=== PATIENT | female | born 1950 | race Caucasian/White ===

== ENCOUNTER 2021-12-25 11:27 | Inpatient (IN) ==
--- NOTE | 2021-12-01 08:51 | PAT Medication Instructions ---
Medication Instructions Date of Service December 01, 2021 Home Medications Glucosamine-Chondr (boswellia) 500 mg PO QAM biotin 2,500 mcg capsule 2,500 mcg PO QAM cholecalciferol (vitamin D3) 125 mcg (5,000 unit) tablet (Vitamin D3) 125 mcg PO QAM cranberry concentrate-ascorbic acid 140 mg-100 mg capsule (Cranberry Plus Vitamin C) 1 cap PO BID fenugreek seed 610 mg capsule 610 mg PO QAM levothyroxine 112 mcg capsule 112 mcg PO QAM milk thistle 500 mg capsule 1,000 mg PO QAM turmeric root extract 500 mg tablet 1,500 mg PO BID vit C,E,zinc,copper-kjhlt6h 250 mg-lutein 5 mg-zeaxanthin 1 mg capsule 1 cap PO QAM vitamin B12 1,000 mcg-folic acid 400 mcg sublingual tablet 1 tab SUBLINGUAL QAM STOP taking 2 weeks before surgery (or as soon as possible if surgery is within 2 weeks) Glucosamine-Chondr (boswellia) 500 mg PO QAM cranberry concentrate-ascorbic acid 140 mg-100 mg capsule (Cranberry Plus Vitamin C) 1 cap PO BID fenugreek seed 610 mg capsule 610 mg PO QAM milk thistle 500 mg capsule 1,000 mg PO QAM turmeric root extract 500 mg tablet 1,500 mg PO BID vit C,E,zinc,copper-umumk9b 250 mg-lutein 5 mg-zeaxanthin 1 mg capsule 1 cap PO QAM DO NOT take the morning of surgery biotin 2,500 mcg capsule 2,500 mcg PO QAM cholecalciferol (vitamin D3) 125 mcg (5,000 unit) tablet (Vitamin D3) 125 mcg PO QAM vitamin B12 1,000 mcg-folic acid 400 mcg sublingual tablet 1 tab SUBLINGUAL QAM Take morning of surgery With a small sip of water, OTHERWISE NOTHING TO EAT OR DRINK AFTER MIDNIGHT: levothyroxine 112 mcg capsule 112 mcg PO QAM Other Notes If you have any questions please call us at [phone] or [phone] or [phone] or [phone]
--- NOTE | 2021-12-06 12:51 | Anesthesiology Consultation ---
Date of Service December 06, 2021 Assessment & Plan (1) Encounter for pre-operative examination: Chart Review Chart Review: Acceptable Risk for Surgery (pending preop Covid testing results ) and Patient seen in Pre Admission Testing Per PAT appt on 12/06/21, patient denies any recent travel or large group activities. No known Covid positive exposures or Covid related symptoms. No known Covid infection in the past 90 days. Pt is vaccinated for Covid. Preop Covid testing needs done 2-4 days prior to surgery (pt aware) = will await results. Educated on importance of self quarantining, social distancing and wearing mask in public for the patient one week prior to surgery and after Covid testing done Teaching & Discussion Pre-Anesthesia Teaching/Discussion Notes: Instructed NPO after midnight before surgery,except medications with 15 cc of water. Medication instructions provided according to the [facility] guidelines. History Surgery Operation Date: 12/25/21 09:45 Proposed Procedures p Right Reversed Total Shoulder Arthroplasty - Gino Bernal MD Height/Weight Height: 5 ft 8 in Weight: 76.4 kg Allergies Allergy/AdvReac Type Severity Reaction Status Date / Time No Known Allergies Allergy Verified 11/30/21 14:00 Medications Home Medications Medication Instructions Recorded Confirmed Last Taken Glucosamine-Chondr (boswellia) 500 mg PO QAM 11/30/21 11/30/21 Unknown biotin 2,500 mcg capsule 2,500 mcg PO QAM 11/30/21 11/30/21 Unknown cholecalciferol (vitamin D3) 125 125 mcg PO QAM 11/30/21 11/30/21 Unknown mcg (5,000 unit) tablet (Vitamin D3) cranberry concentrate-ascorbic 1 cap PO BID 11/30/21 11/30/21 Unknown acid 140 mg-100 mg capsule (Cranberry Plus Vitamin C) fenugreek seed 610 mg capsule 610 mg PO QAM 11/30/21 11/30/21 Unknown levothyroxine 112 mcg capsule 112 mcg PO QAM 11/30/21 11/30/21 Unknown milk thistle 500 mg capsule 1,000 mg PO QAM 11/30/21 11/30/21 Unknown turmeric root extract 500 mg tablet 1,500 mg PO BID 11/30/21 11/30/21 Unknown vit C,E,zinc,copper-eaedn7j 250 1 cap PO QAM 11/30/21 11/30/21 Unknown mg-lutein 5 mg-zeaxanthin 1 mg capsule vitamin B12 1,000 mcg-folic acid 1 tab SUBLINGUAL QAM 11/30/21 11/30/21 Unknown 400 mcg sublingual tablet Past Medical History Medical History Hypothyroidism Mitral valve prolapse Dx'ed 1980s - very mild per patient- no murmur or need for abxs Exercise / Class Metabolic Activity II 4-5 Yardwork/Stairs/Walk up hill (one flight of stairs - no chest pain or SOB ) Past Family History Family History Grandmother (Paternal) Diabetes Father Stroke Mother Dementia Past Surgical History Surgical History History of arthroscopy of right shoulder Hx of wisdom tooth extraction Past Anesthesia History No Hx of Anesthesia Complications and No Family Hx of Anesthesia Complications History of PONV No Hx of PONV and No Hx of Motion Sickness Social History Smoking Status: Former smoker tobacco type: cigarettes Smoking cigarettes per day: 1pk/week Do You Dip or Chew Tobacco: No Smoking End Date: 2019 Hx Alcohol Use: No Hx Substance Use: No substance use type: does not use Review of Systems Minimal reflux occ while eating Mild rare cough- secondary to allergies patient feels Patient denies chest pain, shortness of breath, dyspnea on exertion, wheezing, palpitations. No hx of seizures, stroke, [place], apnea/snoring. No hx of blood clots or blood transfusions Physical Exam Vital Signs VITALS BP 126/69 P 77 TEMP 98.0 SP02 96% RESP 16 Constitutional no acute distress ENMT Mouth: no TMJ clicking Thyromental Distance: < 3.5 Finger Breadths (3.0) Mallampati Class: II Broken upper left molar Neck neck extension not limited Respiratory normal respiratory effort; no respiratory distress Auscultation: lungs clear to auscultation bilaterally; no wheezes Cardiovascular Rate/Rhythm: regular rate and regular rhythm Heart Sounds: no murmur Vessels: no carotid bruit Musculoskeletal Spine: no pain with cervical ROM Extremities: extremities normal to inspection Psychiatric Orientation: alert Lab Results Anesthesia Preop Results Results Anesthesia Widget: WBC 5.99 K/uL (4.8-10.8) 12/06/21 Hgb 12.9 g/dL (12.0-16.0) 12/06/21 Hct 39.8 % (37-47) 12/06/21 Plt 261 K/uL (130-400) 12/06/21 Na 139 mmol/L (136-145) 12/06/21 K 4.3 mmol/L (3.5-5.1) 12/06/21 Cl 106 mmol/L (98-107) 12/06/21 CO2 26 mmol/L (21-32) 12/06/21 BUN 23 mg/dl (6-23) 12/06/21 Creat 0.74 mg/dl (0.6-1.2) 12/06/21 Glucose Level 94 mg/dl (70-99(Fasting)) 12/06/21 PT 10.2 Seconds (9.0-12.0) 12/06/21 PTT 26.0 Seconds (21.0-31.0) 12/06/21 INR 1.0 (0.9-1.1) 12/06/21 HA1c 5.1 % (4.5-5.6) 12/06/21 Urine Color Dark Yellow 12/06/21 Urine Appearance Clear (Clear) 12/06/21 Urine pH 5.0 (4.5-7.5) 12/06/21 Urine Specific [place] 1.028 (1.000-1.030) 12/06/21 Urine Protein Negative (Negative) 12/06/21 Urine Glucose (UA) Negative (Negative) 12/06/21 Urine Ketones Trace (Negative) H 12/06/21 Urine Blood Negative (Negative) 12/06/21 Urine Nitrite Negative (Negative) 12/06/21 Urine Bilirubin Negative (Negative) 12/06/21 Urine Urobilinogen Negative (Negative) 12/06/21 Urine Leukocyte Esterase Negative (Negative) 12/06/21 Blood Type O Positive 12/06/21 Antibody Screen NEGATIVE 12/06/21 Testing Electrocardiogram Date: 12/06/21 Findings: + NSR @ (64bpm ) Normal EKG per cardio. Chest X-Ray Date: 12/06/21 Findings: + NAD The cardiomediastinal silhouette is unremarkable. Emphysematous change is suspected. Interstitial thickening is likely chronic. No airspace consolidation or pleural effusion is identified. There is no pneumothorax.
--- NOTE | 2021-12-24 19:19 | History & Physical Report ---
Date of Service December 24, 2021 Assessment & Plan (1) Full thickness rotator cuff tear: Plan: Treatment options discussed with patient. She has failed conservative measures. She would like to proceed with surgical intervention. Risks, benefits and alternatives to surgery including but not limited to infection, DVT, pain, stiffness, need for revision surgery, damage to blood vessels, damage to nerves, PE, , were discussed with the patient and they wish to proceed. Plan on right reverse total shoulder arthroplasty scheduled for [facility] with Dr. Bernal on 12/25/21. All questions answered. She will follow up post op. Rotator cuff tear trauma status: unspecified whether traumatic Laterality: right Qualified Code(s): M75.121 - Complete rotator cuff tear or rupture of right shoulder, not specified as traumatic History of Present Illness Chief Complaint: Right shoulder pain Primary Care Provider: HANK PCP 71 year old female with PMHx significant for hypothyroidism and MVP who presents with ongoing right shoulder pain. Patient underwent rotator cuff repair in June of this year and was found to have persistent pain and weakness. MRI confirmed failure of repair with retraction. It was discussed with patient that this would not be amenable to repair and would require arthroplasty. She has failed conservative measures including therapy. Patient has pain with daily activities. Patient denies headaches, sweats, fevers, chills, double vision, blurred vision, cough, sore throat, dysphagia, chest pain, sob, wheezing, n/v/d/c, numbness, tingling, fatigue, urinary symptoms, mood disorders. ROS positive for right shoulder pain and stiffness. Allergies Allergy/AdvReac Type Severity Reaction Status Date / Time No Known Allergies Allergy Verified 11/30/21 14:00 Home Medications Medication Instructions Recorded Confirmed Type Glucosamine-Chondr (boswellia) 500 mg PO QAM 11/30/21 11/30/21 History biotin 2,500 mcg capsule 2,500 mcg PO QAM 11/30/21 11/30/21 History cholecalciferol (vitamin D3) 125 125 mcg PO QAM 11/30/21 11/30/21 History mcg (5,000 unit) tablet (Vitamin D3) cranberry concentrate-ascorbic 1 cap PO BID 11/30/21 11/30/21 History acid 140 mg-100 mg capsule (Cranberry Plus Vitamin C) fenugreek seed 610 mg capsule 610 mg PO QAM 11/30/21 11/30/21 History levothyroxine 112 mcg capsule 112 mcg PO QAM 11/30/21 11/30/21 History milk thistle 500 mg capsule 1,000 mg PO QAM 11/30/21 11/30/21 History turmeric root extract 500 mg tablet 1,500 mg PO BID 11/30/21 11/30/21 History vit C,E,zinc,copper-kasas2t 250 1 cap PO QAM 11/30/21 11/30/21 History mg-lutein 5 mg-zeaxanthin 1 mg capsule vitamin B12 1,000 mcg-folic acid 1 tab sublingual QAM 11/30/21 11/30/21 History 400 mcg sublingual tablet Past Med/Surg History Medical History Hypothyroidism Mitral valve prolapse Dx'ed 1980s - very mild per patient- no murmur or need for abxs Surgical History History of arthroscopy of right shoulder Hx of wisdom tooth extraction Family History Grandmother (Paternal) Diabetes Father Stroke Mother Dementia Social History Smoking Status: Former smoker Cigarettes Per Day: 1pk/week; Second Hand Exposure: No; Hx Alcohol Use: No Hx Substance Use: No Preferred Language: Wallisian Communication Ability: Effective 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 Beliefs That Will Affect Care: None Current Living Situation: Family Current Living Situation Comment: Son and grand daughter Feels Safe at Home: Yes Assistive Devices: Glasses Review of Systems All systems reviewed & are unremarkable except as noted in HPI & below Physical Exam Constitutional: well developed and well nourished; no acute distress Eyes: PERRL, conjunctivae normal, anicteric sclerae ENMT: external ear and nose normal, oropharynx normal Neck: trachea midline, no thyromegaly Respiratory: normal respiratory effort, lungs clear to auscultation Cardiovascular: RRR, no murmur, no edema Musculoskeletal: Right shoulder: Tenderness anterolateral acromion. Crepitation with ROM. Painful ROM. FF to 90 degrees, abduction to 90 degrees actively. Pain and weakness with resistive strength testing. Skin: no rashes, warm and dry Neurologic: patellar DTR's 2+ bilat, sensation intact Psychiatric: A+Ox3, euthymic affect Results & Data ([place]) Diagnostic Findings Right shoulder MRI demonstrates recurrent full thickness tear of supraspinatus extending into infraspinatus with retraction
[~2021-12-25 11:27] MED LIST: ACETAMINOPHEN 500 MG TAB PO SCH; BUPIVACAINE 0.25% 30 ML VIAL ONE; CeleBREX 200 MG CAP PO SCH; DEXAMETHASONE SOD INJ 4 MG/ML VIAL ONE; FAMOTIDINE 20 MG TAB PO SCH; GABAPENTIN 300 MG CAP PO SCH; LIDOCAINE 2% 2 ML VIAL/AMP(20MG/ML) INFIL ONE; LR 15ML/HR IV SCH; METOCLOPRAMIDE HCL 10 MG TABLET PO SCH; MIDAZOLAM HCL 1 MG/ML 2ML VIAL ONE; ONDANSETRON INJ 2 MG/ML 2 ML VIAL ONE; PROPOFOL IV EMULSION 10 MG/ML 20 ML VIAL IV ONE; ROCURONIUM BROMIDE 10 MG/ML 5 ML VIAL IV ONE; TRANEXAMIC ACID / 0.7% NACL 1,000 MG/100 ML BAG IV SCH; TRANEXAMIC ACID 1,000 MG **IV Intra-op IV SCH; ceFAZolin 1000MG 1,000 MG/7.5 ML SYR IV SCH; dexAMETHasone 4 MG TAB PO SCH; fentaNYL citrate 100 MCG/2 ML VIAL ONE
--- NOTE | 2021-12-25 12:04 | History & Physical Bridge Note ---
Date of Service December 25, 2021 History & Physical Bridge Note I have examined the patient, reviewed the History & Physical and in the interval since the performance of the History & Physical I have noted the following changes of clinical significance: no changes noted
[2021-12-25] MEDS ORDERED: fentaNYL citrate 100 MCG/2 ML VIAL IV PRN (12:36)
[2021-12-25] MEDS ORDERED: ePHEDrine sulfate 50 MG/ML AMP IV PRN (12:36)
[2021-12-25] MEDS ORDERED: ONDANSETRON INJ 2 MG/ML 2 ML VIAL IV PRN ×2 (12:36→17:48)
[2021-12-25] MEDS ORDERED: PROMETHAZINE HCL 6.25 MG in SODIUM CHLORIDE 0.9% 50 ML IV PRN (12:36)
[2021-12-25] MEDS ORDERED: ATROPINE SULFATE 0.1 MG/ML 10ML SYR IV PRN (12:36)
[2021-12-25] MEDS ORDERED: DEXAMETHASONE SOD INJ 4 MG/ML VIAL ONE (14:06)
--- NOTE | 2021-12-25 16:28 | Operative Report ---
Post Operative Report Pre & Post Diagnosis Operation Date: 12/25/21 14:05 Pre-Op Diagnosis: Failure rotator cuff repair right shoulder Post-Op Diagnosis: Failure rotator cuff repair right shoulder, mild glenohumeral joint osteoarthritis, prior biceps rupture or tenotomy with lax biceps tendon I identified the patient and participated in the time-out.: Yes Procedure Operation Date: 12/25/21 14:05 Actual Procedures p Right Reversed Total Shoulder Arthroplasty--Uncemented(Right), biceps tenodesis, removal deep hardware(suture anchors and suture material)- Gino Bernal MD Surgeon Gino Bernal MD Business Consult Adriel MANCIA Estimated Blood Loss 40 Findings Consistent with Post-Op Diagnosis Specimens Humeral head cut Drains 2 Hemovac Anesthesia Type General Regional Complications none Disposition Disposition: Recovery Room Indications 71-year-old female who had a rotator cuff repair due to a work-related traumatic injury. Patient had augmentation of the repair with a Regeneten biological implant. Despite having a surgical repair the patient went on to have a failed rotator cuff repair with a large tear and chronic weakness and disability with overhead use. Patient's also had some chronic pain as well. MRI demonstrates failure rotator cuff repair with large superior defect in the rotator cuff. Description of Procedure The patient was taken to the operating room and anesthetized under regional block and general anesthetic. The patient was positioned on the operating table in a 30 beach chair position with a towel roll under the medial border of the right scapula. The arm was draped free to be able to manipulate the shoulder as needed. The right upper extremity was prepped and draped in usual sterile fashion. Exam demonstrated 100 degrees forward flexion and 30 degrees external rotation and 70 degrees of abduction. Patient had benign healed arthroscopic scars. An anterior deltopectoral approach was performed. A longitudinal incision was made in the deltopectoral interval. The skin was incised sharply. Subcutaneous flaps were elevated off the fascia. The cephalic vein was dissected out and retracted lateral with the deltoid. The clavipectoral fascia was divided at the lateral margin of the conjoined tendon and extended up to the CA ligament. The following findings were noted: There was scarred bursal tissue over the rotator cuff with an intact subscapularis tendon and torn supraspinatus and infraspinatus tendons with retraction with intact teres minor. There was still some intact tissue in the rotator interval area above the subscapularis. Biceps tendon was lax in the bicipital groove, there was a fluid collection in the bicipital groove area with tenosynovitis around the biceps tendon. There was no proximal biceps tendon in the glenohumeral joint. The upper centimeter of the pectoralis was released for inferior exposure. A self-retaining retractor was placed. The biceps tendon findings demonstrated laxity of the biceps tendon with intact biceps tendon at the area of the pectoralis tendon.. the biceps tendon was tensioned some proximally and then sutured to the pectoralis tendon with interrupted #2 FiberWire to noticing it to the pectoralis tendon. The proximal biceps was resected. The subscapularis muscle fibers were split longitudinally at the level of the circumflex vessels. The circumflex vessels were identified and tied off with silk ties and divided laterally. A Kitner elevator was used to free up the inferior fibers of the subscapularis off of the capsule. The axillary nerve was identified with a tug test and protected with a blunt Cipriano retractor between the nerve and the capsule. The rotator oval tissue was resected and released off the greater tuberosity. The thickened subacromial bursa was all resected and subdeltoid adhesions were released. The subscapularis tendon was then taken down off of the lesser tuberosity subperiosteally, a Vicryl traction suture was placed and a subperiosteal dissection was performed along the neck of the humerus as the arm was gradually externally rotated exposing the humeral head. The humeral head f indings demonstrated central region of grade 3 close to grade IV chondromalacia about 12 mm in diameter and some minor wear of the articular surface and no osteophytes.. retractors were readjusted and A Choudhury elevator was used to assist in releasing the capsule of the neck of the humerus. The capsule was divided with Castillo scissors down to the glenoid released off the anterior glenoid and the rotator interval was released to meet the capsular release and a 360 release of the subscapularis was accomplished. A Fukuda retractor was placed into the joint retracting the humeral head posterior. Glenoid findings demonstrated intact articular cartilage. The labrum was resected. an anterior-inferior and posterior inferior capsular release were performed with electrocautery and a Choudhury elevator on bone with the axillary nerve protected inferiorly by the retractor. Attention was then taken to the humeral preparation. The cutting guide was placed into the humeral head. It was positioned at 20 of retroversion. Oscillating saw was used to resect the humeral head giving the cut above the level of the posterior rotator cuff insertion site. Several suture anchors were removed which were peek anchors with suture tape and sutures removed with a scalpel as well. This was required to be able to instrument the canal for the implant. The humerus was then prepared for the stem. I used the ascend flex stem from [employer]. The sizing broaches were used followed by trial broaches up to a size 5B long which had the appropriate fit and fill. The appropriate sized cut protector was placed. The humerus was then retracted posterior to the glenoid. The glenoid was sized for a 25 mm baseplate. The guide for the baseplate was positioned in a 10 inferior tilt and the central drill hole was made. The reamer for the 25 baseplate was used. It was noted the patient had some level of osteopenia or osteoporosis as the bone was quite soft. The central drill was widened for the peg. The Tornier 25 mm hydroxyapatite-coated baseplate was impacted into position. The base plate was transfixed with superior and inferior locking screws and anterior and posterior compression screws with stable fixation. Posterior screw had fair fixation the locking screws had good fixation and the anterior screw had good fixation despite the soft bone. The fan reamer was used for the 36 millimeter glenoid sphere. After irrigation the 36 mm standard glenoid sphere was impacted onto the baseplate and the security screw was tightened. Attention was taken back to the humerus. The cut protector was removed and the +0 high offset humeral tray trial was assembled to the trial stem rotated appropriately to get bony coverage and then screwed in position. A trial reduction was performed. A +6, 36 mm reversed trial insert demonstrated good stability and no shuck. The trials were removed. 3 drill holes are made into the harder bone in the bicipital groove area and 3 #5 FiberWire sutures were placed transosseously. The canal was irrigated with antibiotic solution with bacitracin. The final component was assembled. The final component was Tornier ascend flex 5B long stem assembled to the plus 0 high offset tray with a +6, 36 reversed polyethylene insert. This was then impacted into the humerus with a tight press-fit. It was reduced to the glenoid sphere. Stability was verified. We verified there was no shuck with traction and good stability. The subscapularis was repaired with the #5 FiberWire sutures using Gerald-Rinku suture technique. Lateral row soft tissue repair was performed with #2 FiberWire [id number] sutures. The pectoralis was repaired with #2 FiberWire [id number] sutures reinforcing the biceps tendon tenodesis. The arm was taken through a range of motion which demonstrated 130 degrees forward flexion, 100 degrees abduction and 60 degrees external rotation without any tension on the repair. The implant was stable through the range of motion tested. The wound was copiously irrigated. 2 Hemovac drains were placed. The deltopectoral interval was closed with [id number] #1 Vicryl sutures. The subcutaneous tissues were closed with 2- 0 Vicryl sutures. The skin was closed with olga. Sterile dressings were applied and a shoulder immobilizer. Adriel Dai my physician assistant program director acted as communication assistant throughout the procedure .He performed functions including arm positioning, prepping and draping, soft tissue retraction, instrument management, suture management and performed the subcutaneous and skin closure and will participate in the postoperative care of the patient. I attest to the content of the Intraoperative Record and any orders documented therein. Any exceptions are noted below.
--- NOTE | 2021-12-25 16:56 | XRay Report ---
RIGHT SHOULDER 2 VIEWS CLINICAL HISTORY: Postoperative examination. FINDINGS: 2 portable views of the right shoulder are obtained. No prior studies are available for [facility] at the time of dictation. The skeletal structures are osteopenic. A right shoulder arthroplas ty is in near-anatomic alignment. No acute fracture is seen. Skin clips, a surgical drain, soft tissu e gas, and edema overlying the right shoulder are expected postoperative findings. Mild productive de generative change is noted in the acromioclavicular joint. The right lung parenchyma is clear as imag ed. IMPRESSION: Expected postoperative findings status post right shoulder arthroplasty. No acute fractur e is identified. Electronically signed by: Javier Grimes M.D. 12/25/2021 4:55 PM
--- NOTE | 2021-12-25 17:08 | Anesthesiology Progress Note ---
Date of Service December 25, 2021 Anesthesia Post Procedure Vital Signs Vital Signs: Temp Pulse Resp BP Pulse Ox O2 Del Method 12/25/21 16:55 55 L 13 99/53 L 94 Room Air 12/25/21 16:45 61 16 102/63 93 Room Air 12/25/21 16:35 36.1 C L 62 16 125/72 98 Room Air 12/25/21 12:25 37.0 C 71 20 140/84 98 Room Air Transfer of Care Handoff Completed per policy Notes Mental Status: alert / awake / arousable Patient Amnestic to Procedure: Yes Nausea / Vomiting: adequately controlled Pain: adequately controlled Airway Patency, RR, SpO2: stable & adequate BP & HR: stable & adequate Hydration State: stable & adequate Anesthetic Complications: no major complications apparent
[2021-12-25] MEDS ORDERED: HYDROmorphone INJ 0.5 MG/0.5 ML SYR IV PRN (17:48)
[2021-12-25] MEDS ORDERED: NALOXONE HCL 0.4 MG/1 ML VIAL/CARP IV PRN (17:48)
[2021-12-25] MEDS ORDERED: oxyCODONE HCL IR 5 MG TAB (IMMEDIATE RELEASE) PO PRN (17:48)
[2021-12-25] MEDS ORDERED: bisacodyL 10 MG SUPP PR PRN (17:48)
[2021-12-25] MEDS ORDERED: METOCLOPRAMIDE HCL INJ 5 MG/ML 2 ML VIAL IV PRN (17:48)
[2021-12-25] MEDS ORDERED: MAGNESIUM HYDROXIDE SUSP 30 ML UDC PO PRN (17:48)
[2021-12-25] MEDS: SODIUM CHLORIDE 0.9% 1000ML 1,000 ML IV SCH (18:07)
[2021-12-25] MEDS: DOCUSATE SODIUM 100 MG CAP PO SCH (20:55)
[2021-12-25] MEDS ORDERED: SENNA 8.6 MG TAB PO SCH (21:00)
[2021-12-25] MEDS: ACETAMINOPHEN 500 MG TAB PO SCH (21:45)
[2021-12-25] MEDS: ceFAZolin 1000MG 1,000 MG/7.5 ML SYR IV SCH (21:46)
[2021-12-26] MEDS: SODIUM CHLORIDE 0.9% 1000ML 1,000 ML IV SCH (04:12)
[2021-12-26] MEDS: ACETAMINOPHEN 500 MG TAB PO SCH (05:48)
[2021-12-26] MEDS: ceFAZolin 1000MG 1,000 MG/7.5 ML SYR IV SCH (05:49)
[2021-12-26] MEDS ORDERED: LEVOTHYROXINE SODIUM 112 MCG TABLET PO SCH (06:30)
--- NOTE | 2021-12-26 08:02 | Orthopedic Progress Note ---
Date of Service December 26, 2021 Assessment & Plan (1) Full thickness rotator cuff tear: Plan: Postop day #1 right reverse total shoulder arthroplasty -PT/OT: No formal therapy at this time. May do elbow/wrist/hand motion, pendulums, shrugs -Pain management as written -A.m. labs are pending -DVT prophylaxis: SCDs -Discharge planning: Plan on discharge home today. Admission and Anticipated Discharge Date Admission Date: December 25, 2021 Subjective Patient is postop day 1 right reverse total shoulder. She is doing well this morning. No pain in shoulder at this time. Residual from nerve block. No other complaints. Denies chest pain, shortness of breath, dizziness, n/v/d. Review of Systems Review of Systems: All systems reviewed & are unremarkable except as noted in Subjective Physical Exam Physical Exam: Right shoulder: Sling in place. Dressing is clean, dry, intact. Decreased movement of fingers as well as decreased sensation residual from nerve block. This is starting to improve. Results & Data ([facility]) Vital Signs (Past 12 Hours) Vital Signs Temp Pulse Resp BP Pulse Ox O2 Del Method 12/26/21 07:18 36.4 C L 64 16 135/76 96 Room Air 12/26/21 02:49 36.2 C L 72 18 143/75 H 93 Room Air 12/25/21 23:00 36.5 C 76 16 131/72 96 Room Air 12/25/21 20:57 36.3 C L 81 16 147/76 H 95 Room Air (1) Full thickness rotator cuff tear Rotator cuff tear trauma status: unspecified whether traumatic Laterality: right Qualified Code(s): M75.121 - Complete rotator cuff tear or rupture of right shoulder, not specified as traumatic
[2021-12-26] MEDS: DOCUSATE SODIUM 100 MG CAP PO SCH (08:06)
[2021-12-26 08:55] LABS: Basophils # (auto) 0.02 K/uL (0-0.2); Basophils % (auto) 0.2 %; Hematocrit (blood only) 33.7 % (34.1-44.9); Hemoglobin 11.1 g/dl (12.0-16.0); Immature Granulocytes # (auto) 0.03 K/uL (0.00-0.02); Immature Granulocytes % (auto) 0.3 %; Lymphocytes # (auto) 1.16 K/uL (1.2-3.4); Lymphocytes % (auto) 10.5 %; Mean Corpuscular Hemoglobin 31.1 pg (25.0-34.0); Mean Corpuscular Hgb Conc 32.9 g/dL (32.0-36.0); Mean Corpuscular Volume 94.4 fL (80.0-100.0); Mean Platelet Volume 10.4 fL (9.4-12.3); Monocytes # (auto) 0.96 K/uL (0.24-0.82); Monocytes % (auto) 8.7 %; Neutrophils % (auto) 80.3 %; Platelet Count 203 K/uL (130-400); RDW Coefficient of Variation 12.6 % (11.5-14.5); RDW Standard Deviation 44.1 fL (36.4-46.3); Red Blood Count 3.57 M/uL (3.93-5.22); White Blood Count 11.07 K/ul (4.8-10.8)
[2021-12-26] MEDS ORDERED: CYANOCOBALAMIN (B-12) 500 MCG TABLET PO SCH (09:00)
[2021-12-26] MEDS ORDERED: BIOTIN 2500 MCG PO SCH (09:00)
[2021-12-26] MEDS ORDERED: NON-FORMULARY MEDICATION (Vitamin B12-Folic Acid 1,000-400 mcg Tablet, Sublingual) SL SCH (09:00)
[2021-12-26] MEDS ORDERED: FOLIC ACID 400 MCG TAB PO SCH (09:00)
[2021-12-26] MEDS ORDERED: CHOLECALCIFEROL 5,000 UNITS 125 MCG TAB PO SCH (09:00)
[2021-12-26] MEDS ORDERED: MULTIVITAMIN TAB PO SCH (09:00)
[2021-12-26 09:19] LABS: BUN Creatinine Ratio 27.1 (10-20); Calcium 8.9 mg/dl (8.5-10.1); Creatinine Clr Calc Pharmacy 72.2 ml/min; Est GFR (African American) 99.6 ml/min; Potassium 4.1 mmol/L (3.5-5.1)
--- NOTE | 2021-12-26 15:17 | Communication Note ---
Date of Service: December 26, 2021 Patient was discharged within 24 hours of admission before being seen.
--- NOTE | 2021-12-28 08:48 | Discharge Summary ---
Date of Service December 28, 2021 Admission HPI Per Admitting Provider 71 year old female with PMHx significant for hypothyroidism and MVP who presents with ongoing right shoulder pain. Patient underwent rotator cuff repair in June of this year and was found to have persistent pain and weakness. MRI confirmed failure of repair with retraction. It was discussed with patient that this would not be amenable to repair and would require arthroplasty. She has failed conservative measures including therapy. Patient has pain with daily activities. Patient denies headaches, sweats, fevers, chills, double vision, blurred vision, cough, sore throat, dysphagia, chest pain, sob, wheezing, n/ v/d/c, numbness, tingling, fatigue, urinary symptoms, mood disorders. ROS positive for right shoulder pain and stiffness. Admission Exam Per Admitting Provider Constitutional: well developed and well nourished; no acute distress Eyes: PERRL, conjunctivae normal, anicteric sclerae ENMT: external ear and nose normal, oropharynx normal Neck: trachea midline, no thyromegaly Respiratory: normal respiratory effort, lungs clear to auscultation Cardiovascular: RRR, no murmur, no edema Musculoskeletal: Right shoulder: Tenderness anterolateral acromion. Crepitation with ROM. Painful ROM. FF to 90 degrees, abduction to 90 degrees actively. Pain and weakness with resistive strength testing. Skin: no rashes, warm and dry Neurologic: patellar DTR's 2+ bilat, sensation intact Psychiatric: A+Ox3, euthymic affect Principal Diagnosis right shoulder rotator cuff arthropathy Discharge Exam Right shoulder: Sling in place. Dressing is clean, dry, intact. Decreased movement of fingers as well as decreased sensation residual from nerve block. This is starting to improve. Constitutional well developed and well nourished; no acute distress Discharge Data Allergies Allergy/AdvReac Type Severity Reaction Status Date / Time No Known Allergies Allergy Verified 12/25/21 12:09 Consultations 12/20/21 15:07 Consult Hospitalist Routine Procedures Performed Operation Date: 12/25/21 14:05 Actual Procedures p Right Reversed Total Shoulder Arthroplasty--Uncemented(Right) - Gino Bernal MD Ordered Studies 12/25/21 05:00 US - OR guided needle placemen Routine Hospital Course (1) Full thickness rotator cuff tear: Postop day #1 right reverse total shoulder arthroplasty -PT/OT: No formal therapy at this time. May do elbow/wrist/hand motion, pendulums, shrugs -Pain management as written -A.m. labs are pending -DVT prophylaxis: SCDs -Discharge planning: Plan on discharge home today. Lab Results 12/25/21 12/26/21 12/26/21 Range/Units Unknown 07:53 07:53 WBC 11.07 H (4.8-10.8) K/ul RBC 3.57 L (3.93-5.22) M/uL Hgb 11.1 L (12.0-16.0) g/dl Hct 33.7 L (34.1-44.9) % MCV 94.4 (80.0-100.0) fL MCH 31.1 (25.0-34.0) pg MCHC 32.9 (32.0-36.0) g/dL RDW Std Deviation 44.1 (36.4-46.3) fL RDW Coeff of Rogelio 12.6 (11.5-14.5) % Plt Count 203 (130-400) K/uL MPV 10.4 (9.4-12.3) fL Immature Gran % (Auto) 0.3 % Neut % (Auto) 80.3 % Lymph % (Auto) 10.5 % [place] % (Auto) 8.7 % Eos % (Auto) 0.0 % Baso % (Auto) 0.2 % Neut # (Auto) 8.90 H (1.4-6.5) K/uL Lymph # (Auto) 1.16 L (1.2-3.4) K/uL [place] # (Auto) 0.96 H (0.24-0.82) K/uL Eos # (Auto) 0.00 (0-0.50) K/uL Baso # (Auto) 0.02 (0-0.2) K/uL Immature Gran # (Auto) 0.03 H (0.00-0.02) K/uL Sodium 138 (136-145) mmol/L Potassium 4.1 (3.5-5.1) mmol/L Chloride 109 H (98-107) mmol/L Carbon Dioxide 23 (21-32) mmol/L Anion Gap 6 (3-11) BUN 19 (6-23) mg/dl Creatinine 0.70 (0.6-1.2) mg/dl Est Cr Clr Drug Dosing 72.2 ml/min Est GFR ( Amer) 99.6 ml/min Est GFR (Non-Af Amer) 86.0 ml/min BUN/Creatinine Ratio 27.1 H (10-20) Glucose 92 (70-99(Fasting)) mg/dl Calcium 8.9 (8.5-10.1) mg/dl SARS-CoV-2, RNA, NAAT NEGATIVE (NEGATIVE) Total Time Total Time Spent Total Time Spent (In Minutes): 20 Discharge Plan Discharge Items Patient Disposition: Home - Self-Care Reason For Visit: Failure of Right Rotator Cuff Repair Discharge Diagnosis: Failure of right rotator cuff repair, massive full-thickness rotator cuff tear Activity: Per Instructions section Non-emergency contact: Surgeon Call non-emergency contact if: you have any medication questions, your pain is not controlled, your pain is concerning for you, you have a fever, your temperature is above 101, your wound has increased redness and your wound has increased drainage Follow-up/Referrals: Shay Tran PA-C [Primary Care Provider] - Diet: Regular Addtl Attending Provider Instructions: ACTIVITY RECOMMENDATIONS: SELF CARE INSTRUCTIONS AFTER TOTAL SHOULDER ARTHROPLASTY REVERSE A. You may do daily exercises as taught in physical therapy while in hospital. No lifting with the operative arm. B. You are to wear your sling/immobilizer at all times EXCEPT when performing your daily exercises and for hygiene purposes. C. You may perform dry, daily dressing changes. Please keep your incision covered. You may shower 48 hours after surgery. Do not apply soap or any oi ntment/lotions directly over incision. Do not soak incision in bath tub/swimming pool. D. You may use ice as needed to operative shoulder. SPECIAL CARE INSTRUCTIONS: VERY IMPORTANT TO READ AND REVIEW A. There are a few signs you need to watch for after you are home. Call [facility] at [phone] if you experience any of the followin. Increased severe shoulder pain. Some pain is expected especially when you exercise. 2. Increased swelling in you shoulder or arm; pain or swelling in either upper extremity. 3. Any fluid drainage from the incision. 4. Shortness of breath or chest pain. B. Please call [facility] at [phone] if you have any questions or concerns about your operation or recovery. C. Call your physician if: 1. Temperature is greater than 101 degrees (F). 2. Pain is not relieved by prescribed pain medications. 3. Increase drainage or redness from incision. 4. Unanswered questions or concerns. FOLLOW UP VISIT: Please call [facility] at [phone] to schedule a follow up appointment with Dr. Bernal or his PA in 12-14 days from your surgery date. Stand-Alone Forms: My [facility], Opioid Pain Management, Smoking Cessation Medications and DC Order Prescriptions: New acetaminophen [Tylenol Extra Strength] 500 mg Tablet 1,000 mg PO Q8 Qty: 60 0RF oxycodone 5 mg Tablet 5 - 10 mg PO .Q4h-6h MDD 6 PRN (Reason: pain) Qty: 30 0RF Rx Instructions: Ongoing therapy, Dr. Bernal supervising cefadroxil 500 mg capsule 500 mg PO BID Qty: 14 0RF Continued levothyroxine 112 mcg Capsule 112 mcg PO QAM milk thistle 500 mg Capsule 1,000 mg PO QAM Cranberry Plus Vitamin C 140-100 mg Capsule 1 cap PO BID biotin 2,500 mcg Capsule 2,500 mcg PO QAM cholecalciferol (vitamin D3) [Vitamin D3] 125 mcg (5,000 unit) Tablet 125 mcg PO QAM C,E,zinc,copper [id number] 250-5-1 mg Capsule 1 cap PO QAM vitamin C84-[id number] acid 1,000-400 mcg Tablet, Sublingual 1 tab SUBLINGUAL QAM fenugreek seed 610 mg Capsule 610 mg PO QAM turmeric root extract 500 mg Tablet 1,500 mg PO BID Glucosamine-Chondr (boswellia) 500 mg PO QAM Discharge Orders: Discharge Order (Routine); Ordered 12/26/21 Ordered By: Deandre Gilbert/Other Patient Handouts: DVT Post Op Prevention, ED Sling Admission Data Admit Date/Time: 12/25/21 16:37 Attending Provider: Gino Bernal Admit Provider: Gino Bernal Primary Care Provider: Shay Tran Other Providers: Judah Gomez Other Interventions: Discharge Summary Assessment (RN) Last Done: 12/26/21 12:23
== END 2021-12-26 14:33 | disposition home or self-care (01) | DRG 909 ==
LOC: ASU 11:27 → 3W 16:37